=== PATIENT | male | born 1955 | race Caucasian/White ===

== ENCOUNTER 2018-04-25 10:08 | Outpatient (CLI) | payer OTHER | END 2018-04-25 23:59 | disposition home or self-care (01) | LOC: CFH 10:08 | PROVIDERS: ATTEND Nurse Practitioner Family | DX: Z12.5 Encounter for screening for malignant neoplasm of prostate (principal); N40.0 Benign prostatic hyperplasia without lower urinary tract symptoms | CPT/HCPCS: 36415; G0103 ==

== ENCOUNTER → 2018-08-19 | Outpatient (CLI) | payer OTHER | END | disposition home or self-care (01) | LOC: CFH 09:51 | PROVIDERS: ATTEND Nurse Practitioner Family | DX: R97.20 Elevated prostate specific antigen [PSA] (principal) | CPT/HCPCS: 36415; 84153; 84154 ==

== ENCOUNTER 2019-02-18 09:02 | Emergency (ER) | payer MEDICARE, OTHER ==
[~2019-02-18] VITALS: Ht 177.8 cm; Wt 90.3 kg
[2019-02-18 09:09] VITALS: BP 130/83
--- NOTE | 2019-02-18 09:28 | NUR ---
THIS IS A 63 YO M W/ C/O R HIP PAIN SINCE THIS MORNING. SUDDENT ONSET, DENIES INJURY. RESPIRATIONS ARE EVEN AND UNLABORED. PATIENT IS IN NO ACUTE DISTRESS. PATIENT RESTING ON GURNEY WITH FAMILY AT BED SIDE AND CALL LIGHT IN REACH.
[2019-02-18] MEDS ORDERED: METHOCARBAMOL 750 MG TABLET PO ONE (09:30)
[2019-02-18] MEDS ORDERED: METHOCARBAMOL 750 MG TABLET ONE (09:31)
--- NOTE | 2019-02-18 09:42 | NUR ---
PATIENT MEDICATED PER [facility].
--- NOTE | 2019-02-18 09:58 | NUR ---
PATIENT BACK FROM RADIOLOGY.
--- NOTE | 2019-02-18 10:32 | NUR ---
Patient given discharge instructions and they have confirmed that they understand the instructions. Patient ambulatory with steady gait.
== END 2019-02-18 10:32 | disposition home or self-care (01) ==
LOC: ED 09:55
DX: M54.9 Dorsalgia, unspecified (principal); M25.551 Pain in right hip
CPT/HCPCS: 99283

== ENCOUNTER → 2019-03-28 | Outpatient (CLI) | payer MEDICARE, OTHER ==
[~2019-03-28] MED LIST: TAMS-11 PO
== END | disposition home or self-care (01) ==
LOC: STAR 08:50
PROVIDERS: ATTEND Otolaryngology
DX: Z01.818 Encounter for other preprocedural examination (principal); I44.0 Atrioventricular block, first degree; R00.1 Bradycardia, unspecified; J34.2 Deviated nasal septum
CPT/HCPCS: 93005

== ENCOUNTER 2019-04-04 07:30 | Day surgery (SDC) | payer MEDICARE, OTHER ==
[~2019-04-04] VITALS: Ht 179.1 cm; Wt 90.4 kg
[2019-04-04 06:13] VITALS: BP 127/89
[~2019-04-04 07:30] MED LIST changes: +BACITRACIN OINT 500U/GM, 15 GM ONE; +EPINEPHRINE TOPICAL SOLN 1 MG/ML, 30ML ONE; +FENTANYL PF 250 MCG/5ML ONE; +FLUORESCEIN SODIUM 500 MG/5 ML ONE; +LACTATED RINGERS 1,000 ML IV SCH; +LIDOCAINE 1%-EPI 1:100K, 20ML ONE; +MIDAZOLAM 1 MG/ML, 2ML ONE; +OXYMETAZOLINE NASAL SPRAY 0.05%, 15ML ONE
[2019-04-04] MEDS ORDERED: EPHEDRINE 50 MG/ML, 1ML ONE (07:41)
[2019-04-04] MEDS ORDERED: ONDANSETRON 2MG/ML, 2ML IV PRN (08:00)
[2019-04-04] MEDS ORDERED: PROMETHAZINE 25 MG SUPP PR PRN (08:00)
[2019-04-04] MEDS ORDERED: FENTANYL PF 100 MCG/2ML IV PRN (08:00)
[2019-04-04] MEDS ORDERED: ONDANSETRON ODT 8 MG PO PRN (08:00)
[2019-04-04] MEDS ORDERED: HYDROmorphone 2 MG/ML, 1ML IVPush PRN (08:00)
[2019-04-04] MEDS ORDERED: OXYcodone 5 MG/5 ML ORAL.SOL UDC PO PRN (08:00)
[2019-04-04] MEDS ORDERED: LORazepam 2 MG/ML, 1ML IVPush PRN (08:00)
[2019-04-04] MEDS ORDERED: PROMETHAZINE 25 MG/ML, 1ML IV PRN (08:00)
[2019-04-04] MEDS ORDERED: ACETAMINOPHEN 325 MG TABLET PO PRN (08:00)
[2019-04-04] MEDS ORDERED: NEOSTIGMINE 1 MG/ML, 10ML ONE (08:44)
[2019-04-04] MEDS ORDERED: DEXAMETHASONE 4 MG/ML, 1ML ONE (08:44)
[2019-04-04] MEDS ORDERED: ONDANSETRON 2MG/ML, 2ML ONE (08:44)
[2019-04-04] MEDS ORDERED: ROCURONIUM 10MG/ML,5ML ONE (08:44)
[2019-04-04] MEDS ORDERED: SUCCINYLCHOLINE 20 MG/ML, 10ML ONE (08:44)
[2019-04-04] MEDS ORDERED: CEFAZOLIN 1,000 MG ONE (08:44)
[2019-04-04] MEDS ORDERED: GLYCOPYRROLATE 0.2MG/1ML, 5ML ONE (08:44)
[2019-04-04] MEDS ORDERED: PROPOFOL 10 MG/ML, 20ML ONE (08:44)
== END 2019-04-04 11:45 | disposition home or self-care (01) ==
LOC: OUT 07:30
PROVIDERS: ATTEND Otolaryngology
DX: J34.2 Deviated nasal septum (principal); J34.3 Hypertrophy of nasal turbinates; Z79.899 Other long term (current) drug therapy
CPT/HCPCS: 30140; 30520; J0330; J0690; J1100; J2250; J2405; J2704; J2710; J3010; J3490; J7120

== ENCOUNTER 2020-06-14 10:32 | Outpatient (CLI) | payer MEDICARE, OTHER ==
[~2020-06-14 10:32] MED LIST changes: -BACITRACIN OINT 500U/GM, 15 GM ONE; -EPINEPHRINE TOPICAL SOLN 1 MG/ML, 30ML ONE; -FENTANYL PF 250 MCG/5ML ONE; -FLUORESCEIN SODIUM 500 MG/5 ML ONE; -LACTATED RINGERS 1,000 ML IV SCH; -LIDOCAINE 1%-EPI 1:100K, 20ML ONE; -MIDAZOLAM 1 MG/ML, 2ML ONE; -OXYMETAZOLINE NASAL SPRAY 0.05%, 15ML ONE
== END 2020-06-14 23:59 | disposition home or self-care (01) ==
LOC: RAD 10:32 → EDSTATUS 11:00 → RAD 23:59
PROVIDERS: ATTEND Dermatology
DX: L98.8 Other specified disorders of the skin and subcutaneous tissue (principal)